=== PATIENT | male | born 1980 | race Caucasian/White ===

== ENCOUNTER 2019-12-26 10:02 | Emergency (ER) | payer SELFPAY ==
[2019-12-26] MEDS ORDERED: CEFAZOLIN 1 GM VIAL ONE (10:31)
[2019-12-26] MEDS ORDERED: HYDROmorphone 0.5 MG/0.5 ML SYRINGE ONE (10:31)
[2019-12-26] MEDS ORDERED: Sodium Chloride 0.9% 100 ML ONE (10:32)
[2019-12-26 10:33] LABS: #Basophils 0.1 thou/uL (0.0-0.2); #Eosinphils 0.1 thou/uL (0.0-0.7); #Lymphocytes 1.5 thou/uL (1.20-3.40); #Monocytes 0.5 thou/uL (0.11-0.59); #Neutrophils 4.8 thou/uL (1.40-6.50); %Basophils 0.8 % (0.0-1.0); %Eosinophils 1.5 % (0.0-10.0); %Lymphocytes 21.9 % (21.0-51.0); %Monocytes 7.3 % (0.0-10.0); %Neutrophils 68.6 % (42.0-75.0); Hemoglobin 15.6 g/dL (14.0-18.0); Mean Corpuscular HGB CONC 32.6 g/dL (32.0-36.0); Mean Corpuscular Volume 85.8 fL (78.0-98.0); Mean Platelet Volume 6.5 fL (7.4-10.4); Platelet Count 349 thou/uL (130-400); RBC Distribution Width 10.7 % (11.5-14.5); Red Blood Cell (RBC) Count 5.56 mill/uL (4.70-6.10)
[2019-12-26 10:41] LABS: Prothrombin Time 12.8 sec (12.0-14.7)
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
[2019-12-26 10:52] LABS: ALT (SGPT) 22 U/L (8-55); AST (SGOT) 13 U/L (5-34); Albumin 4.4 g/dL (3.5-5.0); Alkaline Phosphatase 81 U/L (40-110); Anion Gap 16 mmol/L (10-20); BUN (Urea Nitrogen) 14 mg/dL (8.9-20.6); Bilirubin, Total 0.7 mg/dL (0.2-1.2); Calc. Creatinine Clearance 0 mL/min (70-130); Calcium 9.1 mg/dL (7.8-10.44); Carbon Dioxide 25 mmol/L (22-29); Chloride 103 mmol/L (98-107); Estimated GFR-MDRD 78; Globulin 2.7 g/dL (2.4-3.5); Glucose 93 mg/dL (70-105); Potassium 3.6 mmol/L (3.5-5.1); Protein, Total 7.1 g/dL (6.0-8.3); Sodium 140 mmol/L (136-145)
[2019-12-26] MEDS ORDERED: Lidocaine 2% 20 ml MDV ONE (10:52)
[2019-12-26] MEDS ORDERED: Morphine 4 MG/ML VIAL ONE (12:34)
== END 2019-12-26 13:00 | disposition short-term general hospital (02) ==
LOC: MADERS 10:02
DX: S62.642A Nondisplaced fracture of proximal phalanx of right middle finger, initial encounter for closed fracture (principal); S62.644A Nondisplaced fracture of proximal phalanx of right ring finger, initial encounter for closed fracture; S62.346A Nondisplaced fracture of base of fifth metacarpal bone, right hand, initial encounter for closed fracture; S61.240A Puncture wound with foreign body of right index finger without damage to nail, initial encounter; S61.202A Unspecified open wound of right middle finger without damage to nail, initial encounter; S61.204A Unspecified open wound of right ring finger without damage to nail, initial encounter; S61.206A Unspecified open wound of right little finger without damage to nail, initial encounter; W34.00XA Accidental discharge from unspecified firearms or gun, initial encounter
CPT/HCPCS: 29125; 80053; 85025; 85610; 96365; 96375; J0690; J1170; J2270; J3490